=== PATIENT | male | born 1945 | race Caucasian/White ===

== ENCOUNTER 2019-10-01 10:22 | Emergency (ER) | payer MEDICARE ==
[~2019-10-01] VITALS: Ht 177.8 cm; Wt 95.3 kg
--- NOTE | 2019-10-01 10:27 | NUR ---
CAME IN FOR CAT BITE ON RT FOREARM 5DAYS AGO, BEEN FEELING "SICK" SINCE. TETANUS SHOT UPDATED. TO ER BED 11, HOOKED TO MONITOR, AWAITING MD ROSALES
--- NOTE | 2019-10-01 10:42 | NUR ---
DR CLAROS AT BEDSIDE
--- NOTE | 2019-10-01 10:55 | NUR ---
Patient discharged to home in stable condition. Written and verbal after care instructions given. Patient verbalizes understanding of instruction.
[2019-10-01 10:56] VITALS: BP 159/88
== END 2019-10-01 10:56 | disposition home or self-care (01) ==
LOC: ER 10:25
DX: S51.851A Open bite of right forearm, initial encounter (principal); W55.01XA Bitten by cat, initial encounter; Y93.89 Activity, other specified; Y92.89 Other specified places as the place of occurrence of the external cause; Y99.8 Other external cause status